=== PATIENT | male | born 1980 | race Hispanic/Latino ===

== ENCOUNTER 2019-03-23 10:28 | Emergency (ER) | payer OTHER, SELFPAY ==
[2019-03-23] MEDS ORDERED: ONDANSETRON 4 MG (ODT) TAB ONE (11:56)
[2019-03-23] MEDS ORDERED: MORPHINE 4 MG/ML SYR ONE (11:56)
--- NOTE | 2019-03-23 11:59 | EDPHYS ---
Physician Documentation [facility] Name: Nicolas Escobar Age: 38 yrs Sex: Male : 1980 Arrival Date: 03/23/2019 Time: 10:29 Bed 18 Private MD: ED Physician Carlos Reyna HPI: 03/23 11:26 This 38 yrs old Male presents to ER via Ambulatory with complaints of Back pm1 Pain. 11:26 The patient presents with pain that is chronic. The symptoms are located in the low pm1 back. Onset: The symptoms/episode began/occurred 9 month(s) ago. The pain does not radiate. Associated signs and symptoms: Pertinent negatives: abdominal pain, dysuria, fever, headache, incontinence, numbness, tingling, vomiting, weakness. The problem was sustained initial injury a result of lifting heavy object at work. Modifying factors: The patient symptoms are alleviated by nothing, the patient symptoms are aggravated by physical therapy. Severity of symptoms: in the emergency department the symptoms are actually worse. The patient has been recently seen by a physician: with similar presenting complaints, has orders for physical therapy. Historical: - Allergies: 10:48 No Known Allergies; aj1 - Home Meds: 10:48 Tramadol Oral [Active]; Cyclobenzaprine Oral [Active]; aj1 - PMHx: 10:48 None; aj1 - PSHx: 10:48 None; aj1 - Immunization history:: Flu vaccine is not up to date. - Social history:: Smoking status: Patient/guardian denies using tobacco. - Ebola Screening: : Patient denies travel to an Ebola-affected area in the 21 days before illness onset. ROS: 11:26 Constitutional: Negative for fever, chills, and weight loss, Eyes: Negative for injury, pm1 pain, redness, and discharge, ENT: Negative for injury, pain, and discharge, Neck: Negative for injury, pain, and swelling, Cardiovascular: Negative for chest pain, palpitations, and edema, Respiratory: Negative for shortness of breath, cough, wheezing, and pleuritic chest pain, Abdomen/GI: Negative for abdominal pain, nausea, vomiting, diarrhea, and constipation. 11:26 : Negative for injury, bleeding, discharge, and swelling, MS/Extremity: Negative for injury and deformity, Skin: Negative for injury, rash, and discoloration, Neuro: Negative for headache, weakness, numbness, tingling, and seizure. 11:26 Back: Positive for of the low back area, pain. Exam: 11:26 Constitutional: This is a well developed, well nourished patient who is awake, alert, pm1 and in no acute distress. Head/Face: Normocephalic, atraumatic. Eyes: Pupils equal round and reactive to light, extra-ocular motions intact. Lids and lashes normal. Conjunctiva and sclera are non-icteric and not injected. Cornea within normal limits. Periorbital areas with no swelling, redness, or edema. ENT: Nares patent. No nasal discharge, no septal abnormalities noted. Tympanic membranes are normal and external auditory canals are clear. Oropharynx with no redness, swelling, or masses, exudates, or evidence of obstruction, uvula midline. Mucous membranes moist. Neck: Trachea midline, no thyromegaly or masses palpated, and no cervical lymphadenopathy. Supple, full range of motion without nuchal rigidity, or vertebral point tenderness. No Meningismus. Chest/axilla: Normal chest wall appearance and motion. Nontender with no deformity. No lesions are appreciated. Cardiovascular: Regular rate and rhythm with a normal S1 and S2. No gallops, murmurs, or rubs. Normal PMI, no JVD. No pulse deficits. Respiratory: Lungs have equal breath sounds bilaterally, clear to auscultation and percussion. No rales, rhonchi or wheezes noted. No increased work of breathing, no retractions or nasal flaring. Abdomen/GI: Soft, non-tender, with normal bowel sounds. No distension or tympany. No guarding or rebound. No evidence of tenderness throughout. 11:26 Skin: Warm, dry with normal turgor. Normal color with no rashes, no lesions, and no evidence of cellulitis. MS/ Extremity: Pulses equal, no cyanosis. Neurovascular intact. Full, normal range of motion. 11:26 Back: ROM is normal, normal spinal alignment noted, vertebral tenderness, is not appreciated, muscle spasm, is appreciated in the low back area. 11:26 Neuro: Orientation: is normal, Motor: is normal, moves all fours, Sensation: is normal, no obvious gross deficits. Vital Signs: 10:49 BP 135 / 86; Pulse 128; Resp 22; Temp 99.8(TE); Pulse Ox 95% ; aj1 11:55 BP 127 / 86; Pulse 110; Resp 20; Pulse Ox 97% on R/A; ph MDM: 11:05 Patient medically screened. pm1 11:58 Data reviewed: vital signs. Data interpreted: Pulse oximetry: on room air is 97 %. pm1 Interpretation: normal. Counseling: I had a detailed discussion with the patient and/or guardian regarding: the historical points, exam findings, and any diagnostic results supporting the discharge/admit diagnosis, the need for outpatient follow up, to return to the emergency department if symptoms worsen or persist or if there are any questions or concerns that arise at home. Administered Medications: 11:49 Drug: morphine 4 mg Route: IM; Site: right deltoid; ph 12:15 Follow up: Response: No adverse reaction; Pain is decreased ph 11:49 Drug: Zofran 4 mg Route: PO; ph 12:15 Follow up: Response: No adverse reaction; Nausea is decreased ph Disposition: 13:20 Co-signature as Attending Physician, Carlos Reyna MD I agree with the assessment and kdr plan of care. Disposition: 03/23/19 11:59 Discharged to Home. Impression: Low back pain, Other chronic pain. - Condition is Stable. - Discharge Instructions: Back Pain, Adult, Chronic Pain. - Prescriptions for Zofran 4 mg Oral Tablet - take 1 tablet by ORAL route every 12 hours As needed; 20 tablet. - Medication Reconciliation Form, Thank You Letter, Antibiotic Education, Prescription Opioid Use form. - Follow up: Emergency Department; When: As needed; Reason: Worsening of condition. Follow up: Private Physician; When: 2 - 3 days; Reason: Recheck today's complaints, Continuance of care, Re-evaluation by your physician. - Problem is new. - Symptoms have improved. Signatures: Shawna Segura RN RN aj1 Carlos Reyna MD MD [facility] Christine Chi RN RN ph Michael Russell, WHEAT WASHER WHEAT WASHER pm1 Corrections: (The following items were deleted from the chart) 12:44 11:59 03/23/2019 11:59 Discharged to Home. Impression: Low back pain; Other chronic ph pain. Condition is Stable. Forms are Medication Reconciliation Form, Thank You Letter, Antibiotic Education, Prescription Opioid Use. Follow up: Emergency Department; When: As needed; Reason: Worsening of condition. Follow up: Private Physician; When: 2 - 3 days; Reason: Recheck today's complaints, Continuance of care, Re-evaluation by your physician. Problem is new. Symptoms have improved. pm1
--- NOTE | 2019-03-23 11:59 | ER ---
Nurse's Notes [facility] Name: Nicolas Escobar Age: 38 yrs Sex: Male : 1980 Arrival Date: 03/23/2019 Time: 10:29 Bed 18 Private MD: Diagnosis: Low back pain;Other chronic pain Presentation: 03/23 10:44 Presenting complaint: Patient states: "In June I sustained an injury at work a 3mm aj1 herniation of L4, L5 . I've been fighting workmans comp ever since to get this addressed, they put me on this work conditioning program and if I didn't go than they would terminate my case, I told the doctor I didn't feel like I was ready for that and it would make things worse and it did. Yesterday I did my session and when I got home that pain got bad. They gave me Tramadol and cyclobenzaprine, but isn't helping. I think those exercises made it worse.". Transition of care: patient was not received from another setting of care. Onset of symptoms was March 22, 2019. Risk Assessment: Do you want to hurt yourself or someone else? Patient reports no desire to harm self or others. Initial Sepsis Screen: Does the patient meet any 2 criteria? No. Patient's initial sepsis screen is negative. Does the patient have a suspected source of infection? No. Patient's initial sepsis screen is negative. Care prior to arrival: None. 10:44 Method Of Arrival: Ambulatory aj1 10:44 Acuity: KESHIA 3 aj1 Triage Assessment: 10:48 General: Appears in no apparent distress. uncomfortable, Behavior is cooperative, aj1 restless. Pain: Complains of pain in back Pain currently is 10 out of 10 on a pain scale. Neuro: Level of Consciousness is awake, alert, obeys commands, Oriented to person, place, time, situation. Cardiovascular: Patient's skin is warm and dry. Respiratory: Airway is patent Respiratory effort is even, unlabored, Respiratory pattern is regular, symmetrical. Musculoskeletal: Range of motion: intact in all extremities. Historical: - Allergies: 10:48 No Known Allergies; aj1 - Home Meds: 10:48 Tramadol Oral [Active]; Cyclobenzaprine Oral [Active]; aj1 - PMHx: 10:48 None; aj1 - PSHx: 10:48 None; aj1 - Immunization history:: Flu vaccine is not up to date. - Social history:: Smoking status: Patient/guardian denies using tobacco. - Ebola Screening: : Patient denies travel to an Ebola-affected area in the 21 days before illness onset. Screenin:58 Abuse screen: Denies threats or abuse. Denies injuries from another. Nutritional ph screening: No deficits noted. Tuberculosis screening: No symptoms or risk factors identified. Fall Risk None identified. Assessment: 11:30 General: Appears in no apparent distress. uncomfortable, slender, well groomed, well ph developed, Behavior is calm, cooperative, appropriate for age, Denies fever, feeling ill. Pain: Complains of pain in posterior cervical area and thoracic area Pain currently is 10 out of 10 on a pain scale. Neuro: Level of Consciousness is awake, alert, obeys commands, Oriented to person, place, time, situation, [employer] [facility] are equal bilaterally Moves all extremities. Full function Denies paresthesias numbness. Cardiovascular: Capillary refill < 3 seconds in bilateral fingers Patient's skin is warm and dry. Respiratory: Airway is patent Respiratory effort is even, unlabored, Respiratory pattern is regular, symmetrical. GI: Reports nausea, Patient currently denies abdominal pain, diarrhea, vomiting. Derm: Skin is intact, is healthy with good turgor, Skin is pink, warm \\T\\ dry. Musculoskeletal: Circulation, motion, and sensation intact. Range of motion: intact in all extremities, Swelling absent. Vital Signs: 10:49 BP 135 / 86; Pulse 128; Resp 22; Temp 99.8(TE); Pulse Ox 95% ; aj1 11:55 BP 127 / 86; Pulse 110; Resp 20; Pulse Ox 97% on R/A; ph ED Course: 10:29 Patient arrived in ED. as 10:47 Triage completed. aj1 10:49 Arm band placed on Patient placed in an exam room. aj1 10:51 Shaina Pena RN is Primary Nurse. aj 10:53 Michael Russell NP is PHCP. pm1 10:53 Carlos Reyna MD is Attending Physician. pm1 11:00 Christine Chi RN is Primary Nurse. ph 11:58 Patient has correct armband on for positive identification. Bed in low position. Call ph light in reach. Side rails up X 1. Pulse ox on. NIBP on. Door closed. Noise minimized. Lights dimmed. Warm blanket given. Pillow given. Head of bed lowered. 11:58 No provider procedures requiring assistance completed. Patient did not have IV access ph during this emergency room visit. Administered Medications: 11:49 Drug: morphine 4 mg Route: IM; Site: right deltoid; ph 12:15 Follow up: Response: No adverse reaction; Pain is decreased ph 11:49 Drug: Zofran 4 mg Route: PO; ph 12:15 Follow up: Response: No adverse reaction; Nausea is decreased ph Outcome: 11:59 Discharge ordered by MD. pm1 12:44 Patient left the ED. ph 12:44 Discharged to home ambulatory, with family. ph 12:44 Condition: improved 12:44 Discharge instructions given to patient, Instructed on discharge instructions, follow up and referral plans. medication usage, Demonstrated understanding of instructions, follow-up care, medications, Prescriptions given X 1. Signatures: Shawna Segura RN RN aj1 Shaina Pena RN RN Rita Brown Patricia, RN RN ph Michael Russell, BPM ARCHITECT BPM ARCHITECT pm1 Corrections: (The following items were deleted from the chart) 10:49 10:44 Acuity: KESHIA 4 aj1 aj1
== END 2019-03-23 12:44 | disposition home or self-care (01) ==
LOC: ER 10:28
DX: G89.29 Other chronic pain (principal)
CPT/HCPCS: 96372; 99283